=== PATIENT | male | born 1995 | race Caucasian/White ===

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

== ENCOUNTER 2017-01-21 21:18 | Emergency (ER) | payer OTHER ==
[2017-01-21] MEDS ORDERED: NS 0.9% 1000 ML* 1,000 ML IV ONE (23:42)
[2017-01-21] MEDS ORDERED: Ondansetron INJ* 2 MG/ML VIAL IV ONE (23:42)
--- NOTE | 2017-01-22 00:13 | ED ---
I, Shiva,Joann, scribed for Raj Knight MD on 01/21/17 at 2344 . Headache - HPI Summary HPI Summary: This 21 y/o male presents to ED for acute onset of migraine SUGGS since 1500 PM. Pt rates SUGGS as 8/10 and diffuse. Positive n/v. Negative photophobia. Pt appears sleepy at time of initial evaluation. Pt has not taken anything to control his SUGGS. PMHx includes known migraine and asthma. Pt reports that this SUGGS feels similar to his known migraine. FHx is positive for CAD, HTN, DM, and throat CA. Family members present at bedside express concern for possible dehydration. Plan of care involving IV fluid and anti-nausea medication is discussed with pt , and they are agreeable. - History Of Current Complaint Chief Complaint: EDHeadache Stated Complaint: VOMITING,HEADPAIN Time Seen by Provider: 01/21/17 23:03 Hx Obtained From: Patient, Medical Records Onset/Duration: Sudden Onset Timing: Constant Character: Dull Location of Headache: Diffuse Aggravating Factor: Nothing Allevating Factors: Nothing - Allergies/Home Medications Allergies/Adverse Reactions: Allergies Allergy/AdvReac Type Severity Reaction Status Date / Time Environmental Allergies Allergy Wheezing Uncoded 12/10/16 08:08 PMH/Surg Hx/FS Hx/Imm Hx Endocrine/Hematology History: Denies: Hx Anticoagulant Therapy, Hx Diabetes, Hx Thyroid Disease Cardiovascular History: Denies: Hx Congestive Heart Failure, Hx Deep Vein Thrombosis, Hx Hypertension , Hx Myocardial Infarction, Hx Pacemaker/ICD Respiratory History: Reports: Hx Asthma Denies: Hx Chronic Obstructive Pulmonary Disease (COPD), Hx Lung Cancer, Hx Pneumonia, Hx Pulmonary Embolism GI History: Reports: Hx Gastroesophageal Reflux Disease, Other GI Disorders - hx of abd pain now Denies: Hx Gall Bladder Disease, Hx Gastrointestinal Bleed, Hx Ulcer, Hx Urosepsis History: Denies: Hx Kidney Stones, Hx Renal Disease Neurological History: Reports: Hx Seizures - He states that he had this in the past--9 years old. No medications. Denies: Hx Dementia, Hx Migraine, Hx Transient Ischemic Attacks (TIA) Psychiatric History: Reports: Hx Depression Denies: Hx Anxiety, Hx Schizophrenia, Hx Bipolar Disorder - Surgical History Surgery Procedure, Year, and Place: Laparoscopic appendectomy 10/08/12 [facility] [place]x Anesthesia Reactions: No Infectious Disease History: Denies: Hx Clostridium Difficile, Hx Hepatitis, Hx Human Immunodeficiency Virus (HIV), Hx of Known/Suspected MRSA, Hx Shingles, Hx Tuberculosis, Hx Known/ Suspected VRE, Hx Known/Suspected VRSA, History Other Infectious Disease, Traveled Outside the [place] in Last 30 Days - Family History Known Family History: Positive: Cardiac Disease, Hypertension - mother has Hypertension, Diabetes, Other - father at age 30 of throat cancer - Social History Alcohol Use: Rare Hx Substance Use: Yes Substance Use Type: Reports: Marijuana Substance Use Comment - Amount & Last Used: "not recently" Hx Tobacco Use: No Smoking Status (MU): Never Smoked Tobacco Type: Cigars Have You Smoked in the Last Year: No Review of Systems Negative: Fever Positive: Vomiting, Nausea Positive: Headache - Migraine SUGGS All Other Systems Reviewed And Are Negative: Yes Physical Exam Triage Information Reviewed: Yes Vital Signs On Initial Exam: Initial Vitals Temp Pulse Resp BP Pulse Ox 97.7 F 110 20 127/75 100 01/21/17 21:21 01/21/17 21:21 01/21/17 21:21 01/21/17 21:21 01/21/17 21:21 Vital Signs Reviewed: Yes Appearance: Positive: Well-Appearing, No Pain Distress Skin: Positive: Warm Head/Face: Positive: Normal Head/Face Inspection Eyes: Positive: EOMI, JJ ENT: Positive: Hearing grossly normal Neck: Positive: Supple Respiratory/Lung Sounds: Positive: Breath Sounds Present Cardiovascular: Positive: RRR Abdomen Description: Positive: Nontender, Soft Musculoskeletal: Positive: Strength/ROM Intact Neurological: Positive: Sensory/Motor Intact, Alert, Oriented to Person Place, Time, Normal Gait Psychiatric: Positive: Normal Diagnostics - Vital Signs Vital Signs Temp Pulse Resp BP Pulse Ox 01/21/17 21:21 97.7 F 110 20 127/75 100 - Laboratory Lab Statement: Any lab studies that have been ordered have been reviewed, and results considered in the medical decision making process. Re-Evaluation - Re-Evaluation First Eval Re-Evaluation Time: 01:02 Change: Improved Headache Course/Dx - Diagnoses Provider Diagnoses: Migraine Discharge - Discharge Plan Condition: Improved Disposition: HOME Patient Education Materials: Migraine Headache (ED) Referrals: Bry Dorado MD [Primary Care Provider] - 2 Days Additional Instructions: Continue your present treatment for migraine headache as instructed. The documentation as recorded by the Shiva donato Soohyun accurately reflects the service I personally performed and the decisions made by me, Raj Knight MD.
[2017-01-22 01:15] VITALS: BP 113/79
== END 2017-01-22 01:15 | disposition home or self-care (01) ==
LOC: ED 21:18
DX: G43.909 Migraine, unspecified, not intractable, without status migrainosus (principal); G40.909 Epilepsy, unspecified, not intractable, without status epilepticus; F32.9 Major depressive disorder, single episode, unspecified
CPT/HCPCS: 96361; 96374; 99283; J2405

== ENCOUNTER 2018-05-28 11:49 | Emergency (ER) | payer OTHER ==
[2018-05-28 12:08] VITALS: BP 117/58
--- NOTE | 2018-05-28 12:25 | UC ---
Throat Pain/Nasal Matheus HPI - HPI Summary HPI Summary: Onset of left sided sore throat, pain with swallowing, cough and sneeze last night. No fever. - History of Current Complaint Chief Complaint: UCGeneralIllness Stated Complaint: SORE THROAT Time Seen by Provider: 05/28/18 12:15 Hx Obtained From: Patient Onset/Duration: Gradual Onset, Lasting Hours, Still Present Severity: Moderate Pain Intensity: 6 Pain Scale Used: 0-10 Numeric Cough: Nonproductive Associated Signs & Symptoms: Positive: Other - SNEEZING. Negative: Fever Related History: Seasonal Allergies - Allergies/Home Medications Allergies/Adverse Reactions: Allergies Allergy/AdvReac Type Severity Reaction Status Date / Time Environmental Allergies Allergy Wheezing Uncoded 05/28/18 12:11 PMH/Surg Hx/FS Hx/Imm Hx - Additional Past Medical History Additional PMH: ALLERGIES Other History Of: Negative For: HIV, Hepatitis B, Hepatitis C, Anticoagulant Therapy - Surgical History Surgical History: Yes Surgery Procedure, Year, and Place: Laparoscopic appendectomy 10/08/12 [facility] [place] - Family History Known Family History: Positive: Cardiac Disease, Hypertension - mother has Hypertension, Diabetes, Other - father at age 30 of throat cancer - Social History Alcohol Use: Rare Substance Use Type: Marijuana Substance Use Comment - Amount & Last Used: "not recently" Smoking Status (MU): Never Smoked Tobacco Type: Cigars Have You Smoked in the Last Year: No Household Exposure Type: Cigarettes - Immunization History Most Recent Influenza Vaccination: May 2015 Most Recent Tetanus Shot: UTD Vaccination Up to Date: Yes Review of Systems Constitutional: Negative ENT: Sore Throat, Ear Ache, Nasal Discharge Respiratory: Cough Cardiovascular: Negative Gastrointestinal: Negative All Other Systems Reviewed And Are Negative: Yes Physical Exam Triage Information Reviewed: Yes Appearance: Well-Appearing, No Pain Distress, Well-Nourished Vital Signs: Initial Vital Signs Temp 97.8 F 05/28/18 12:01 Pulse 93 05/28/18 12:01 Resp 15 05/28/18 12:01 BP 117/58 05/28/18 12:01 Pulse Ox 97 05/28/18 12:01 Vital Signs Reviewed: Yes Eyes: Positive: Conjunctiva Clear ENT: Positive: Hearing grossly normal, Pharynx normal, TMs normal, Uvula midline. Negative: Tonsillar swelling, Tonsillar exudate Neck: Positive: Supple, Nontender, No Lymphadenopathy Respiratory Exam: Normal Cardiovascular Exam: Normal Abdomen Description: Positive: Soft Musculoskeletal: Positive: No Edema Neurological: Positive: Alert Psychological: Positive: Age Appropriate Behavior Skin: Negative: rashes Throat Pain/Nasal Course/Dx - Differential Dx/Diagnosis Provider Diagnoses: ACUTE PHARYNGITIS Discharge - Sign-Out/Discharge Documenting (check all that apply): Patient Departure All imaging exams completed and their final reports reviewed: No Studies - Discharge Plan Condition: Stable Disposition: HOME Patient Education Materials: Pharyngitis (ED) Forms: *Work Release Referrals: Bry Dorado MD [Primary Care Provider] - If Needed Additional Instructions: YOUR SYMPTOMS ARE LIKELY VIRALLY MEDIATED AND SHOULD RESOLVE ON THEIR OWN WITH TIME. NO INDICATION FOR ANTIBIOTICS AT PRESENT. REST, HYDRATE, OTC MEDS NEEDED. SEEK FOLLOW-UP IF YOU ARE NOT IMPROVING OVER THE NEXT 1-2 WEEKS. CONTINUE YOUR ALLERGY MEDICINE. - Billing Disposition and Condition Condition: STABLE Disposition: Home
== END 2018-05-28 12:29 | disposition home or self-care (01) ==
LOC: UCEAST 11:49
DX: J02.9 Acute pharyngitis, unspecified (principal); R05 Cough
CPT/HCPCS: 99211; G0463

== ENCOUNTER 2018-06-16 11:29 | Emergency (ER) | payer OTHER ==
[2018-06-16 11:58] VITALS: BP 91/53
--- NOTE | 2018-06-16 12:31 | UC ---
Nausea/Vomiting/Diarrhea HPI - HPI Summary HPI Summary: 23-year-old male comes to clinic today with a chief complaint of nausea and vomiting. He's been sick for 3-4 days. Started with vomiting 2 days ago. His multiple episodes of vomiting the last 2 days. Vomited once today. His been able to drink some water but he hasn't been able eat anything. Eating makes the nausea and vomiting worse. Has had some diarrhea today there is no blood in it. He is getting some abdominal cramping but it's not persistent and he has no pain now. No fevers or chills. Is feel lightheaded when he stands up. No sore throat. He has had some rhinorrhea. A younger brother has had a similar illness with nausea and vomiting. - History of Current Complaint Chief Complaint: UCGI Stated Complaint: VOMITING Time Seen by Provider: 06/16/18 12:18 Pain Intensity: 7 - Allergies/Home Medications Allergies/Adverse Reactions: Allergies Allergy/AdvReac Type Severity Reaction Status Date / Time Environmental Allergies Allergy Wheezing Uncoded 06/16/18 11:58 Home Medications: Home Medications Acetaminophen [Tylophen] 1,000 mg PO ONCE PRN 06/16/18 [History Confirmed ] PMH/Surg Hx/FS Hx/Imm Hx Respiratory History: Asthma GI/ History: Gastroesophageal Reflux Neurological History: Migraine Other History Of: Negative For: HIV, Hepatitis B, Hepatitis C, Anticoagulant Therapy - Surgical History Surgical History: Yes Surgery Procedure, Year, and Place: Laparoscopic [place]ectomy 10[place]08[place] [facility] [place] - Family History Known Family History: Positive: Cardiac Disease, Hypertension - mother has Hypertension, Diabetes, Other - father at age 30 of throat cancer - Social History Alcohol Use: Rare Substance Use Type: Marijuana Substance Use Comment - Amount & Last Used: "not recently" Smoking Status (MU): Never Smoked Tobacco Type: Cigars Have You Smoked in the Last Year: No Household Exposure Type: Cigarettes - Immunization History Most Recent Influenza Vaccination: May 2015 Most Recent Tetanus Shot: UTD Vaccination Up to Date: Yes Review of Systems Constitutional: Fatigue Skin: Negative Eyes: Negative ENT: Nasal Discharge Respiratory: Negative Cardiovascular: Negative Gastrointestinal: Vomiting, Diarrhea Genitourinary: Negative Motor: Negative Neurovascular: Negative Musculoskeletal: Negative Neurological: Negative Psychological: Negative Is Patient Immunocompromised?: No All Other Systems Reviewed And Are Negative: Yes Physical Exam Triage Information Reviewed: Yes Appearance: No Pain Distress, Well-Nourished, Ill-Appearing - MILD Vital Signs: Initial Vital Signs Temp 99.5 F 06/16/18 11:53 Pulse 95 06/16/18 11:53 Resp 18 06/16/18 11:53 BP 91/53 06/16/18 11:53 Pulse Ox 97 06/16/18 11:53 Vital Signs Reviewed: Yes Eye Exam: Normal Eyes: Positive: Conjunctiva Clear ENT: Positive: Pharynx normal, Nasal congestion, TMs normal Neck exam: Normal Neck: Positive: Supple Respiratory: Positive: Lungs clear, Normal breath sounds, No respiratory distress Cardiovascular Exam: Normal Cardiovascular: Positive: RRR Abdomen Description: Positive: Nontender, Soft Bowel Sounds: Positive: Present Musculoskeletal Exam: Normal Musculoskeletal: Positive: Strength Intact, ROM Intact Neurological Exam: Normal Neurological: Positive: Alert, Muscle Tone Normal Psychological Exam: Normal Psychological: Positive: Age Appropriate Behavior Naus/Vom/Diarrhea Course/Dx - Course Course Of Treatment: No focal persistent abdominal pain no fevers. At this time we'll treat with Zofran ODT and then have him follow-up his primary care doctor as needed return here if worse. We discussed that if he gets any fevers or any focal area of pain in his abdomen than the emergency department is the best place for reevaluation and treatment. - Differential Dx/Diagnosis Provider Diagnoses: DEHYDRATION. NAUSEA, VOMITING, DIARRHEA Discharge - Sign-Out/Discharge Documenting (check all that apply): Patient Departure All imaging exams completed and their final reports reviewed: No Studies - Discharge Plan Condition: Stable Disposition: HOME Prescriptions: Ondansetron ODT TAB* [Zofran 4 MG Odt TAB*] 4 mg PO Q6H PRN #15 tab.odt PRN Reason: Nausea Patient Education Materials: Dehydration (ED), Acute Nausea and Vomiting (ED), Acute Diarrhea (ED) Referrals: Bry Dorado MD [Primary Care Provider] - Additional Instructions: FOLLOW UP WITH YOUR DOCTOR IF NOT COMPLETELY IMPROVED. GET RECHECKED FOR ANY WORSENING OF YOUR CONDITION OR QUESTIONS OR CONCERNS. - Billing Disposition and Condition Condition: STABLE Disposition: Home
[2018-06-16] MEDS ORDERED: Ondansetron ODT TAB* 4 MG PO ONE (12:35)
== END 2018-06-16 13:05 | disposition home or self-care (01) ==
LOC: UCEAST 11:29
DX: E86.0 Dehydration (principal); R11.2 Nausea with vomiting, unspecified; R19.7 Diarrhea, unspecified
CPT/HCPCS: 99212; A9270-GY; G0463

== ENCOUNTER 2018-08-14 10:17 | Emergency (ER) | payer OTHER ==
[2018-08-14 10:30] VITALS: BP 112/69
--- NOTE | 2018-08-14 11:03 | UC ---
Hand/Wrist HPI - HPI Summary HPI Summary: 23 yo male presents with RIGHT hand injury. He tells me that 2 days ago he was moving furniture and a piece of furniture fell onto his right hand. Has had pain , bruising, swelling, and decreased ROM since. He has been icing the area and taking ibuprofen for discomfort with little relief. - History Of Current Complaint Chief Complaint: UCUpperExtremity Stated Complaint: R HAND INJURY Time Seen by Provider: 08/14/18 10:30 Hx Obtained From: Patient Onset/Duration: Sudden Onset Severity Initially: Moderate Severity Currently: Severe Pain Intensity: 9 Pain Scale Used: 0-10 Numeric - Allergies/Home Medications Allergies/Adverse Reactions: Allergies Allergy/AdvReac Type Severity Reaction Status Date / Time Environmental Allergies Allergy Wheezing Uncoded 08/14/18 10:30 PMH/Surg Hx/FS Hx/Imm Hx Respiratory History: Asthma GI/ History: Gastroesophageal Reflux Other History Of: Negative For: HIV, Hepatitis B, Hepatitis C, Anticoagulant Therapy - Surgical History Surgical History: Yes Surgery Procedure, Year, and Place: Laparoscopic appendectomy 10/08/12 [facility] – [place] - Family History Known Family History: Positive: Cardiac Disease, Hypertension - mother has Hypertension, Diabetes, Other - father at age 30 of throat cancer - Social History Occupation: Employed Full-time Lives: With Family Alcohol Use: Rare Substance Use Type: Marijuana Substance Use Comment - Amount & Last Used: "not recently" Smoking Status (MU): Never Smoked Tobacco Type: Cigars Have You Smoked in the Last Year: No Household Exposure Type: Cigarettes - Immunization History Most Recent Influenza Vaccination: May 2015 Most Recent Tetanus Shot: UTD Vaccination Up to Date: Yes Review of Systems All Other Systems Reviewed And Are Negative: Yes Constitutional: Positive: Negative Skin: Positive: Bruising - Right hand Respiratory: Positive: Negative Cardiovascular: Positive: Negative Neurovascular: Positive: Negative Musculoskeletal: Positive: Other: - Right hand pain Neurological: Positive: Negative Psychological: Positive: Negative Physical Exam - Summary Physical Exam Summary: GENERAL: NAD. WDWN. No pain distress. SKIN: No rashes, sores, lesions, or open wounds. CHEST: No accessory muscle use. Breathing comfortably and in no distress. CV: Pulses intact radial and ulnar. Cap refill <2seconds MSK: RIGHT HAND: Moderate edema about hand. TTP at 4th and 5th MCP with decreased ROM due to pain. Mild TTP about ulnar aspect of wrist. FROM, but painful. Able to make a fist. Strength decreased due to pain and swelling. NEURO: Alert. Sensations intact hand and all fingers. PSYCH: Age appropriate behavior. Triage Information Reviewed: Yes Vital Signs: Initial Vital Signs Temp 98 F 08/14/18 10:26 Pulse 94 08/14/18 10:26 Resp 16 08/14/18 10:26 BP 112/69 08/14/18 10:26 Pulse Ox 99 08/14/18 10:26 Vital Signs Reviewed: Yes Procedures - Splinting Right Upper Extremity Hand-Made Type: orthoglass Splint: ulnar Pre-Proc Neuro Vasc Exam: normal Post-Proc Neuro Vasc Exam: normal Hand/Wrist Course/Dx - Course Course Of Treatment: XR: IMPRESSION: #. Suggestion of displaced intra- articular fracture at the base of the fifth metacarpal. Correlate with clinical assessment and consider CT for further evaluation. CT: IMPRESSION: Tiny fractures at the base of the fourth and fifth metacarpals in its radial. aspect. Fracture of the lateral aspect of the hamate. iSTOP: Reference #: [id number]. Discussed results above. Pt placed in an ulnar-gutter orthoglass splint and advised to f/u with Orthopedics as soon as possible. - Differential Dx/Diagnosis Provider Diagnosis: Right hand fracture Discharge - Sign-Out/Discharge Documenting (check all that apply): Patient Departure All imaging exams completed and their final reports reviewed: Yes - Discharge Plan Condition: Stable Disposition: HOME Prescriptions: HYDROcodone/ACETAMIN 5-325 MG* [Gila 5-325 TAB*] 1 tab PO BID PRN #6 tab MDD 2 PRN Reason: Pain Patient Education Materials: Hand Fracture (ED) Referrals: Bry Dorado MD [Primary Care Provider] - Rafal Sánchez MD [Medical Doctor] - As Soon As Possible Additional Instructions: If you develop a fever, shortness of breath, chest pain, new or worsening symptoms - please call your PCP or go to the ED. 1) Keep your splint clean, dry, and intact until your follow up with Orthopedics 2) Please call Orthopedics at the number below to schedule a follow up appointment as soon as possible - Billing Disposition and Condition Condition: STABLE Disposition: Home
== END 2018-08-14 12:25 | disposition home or self-care (01) ==
LOC: UCEAST 10:17
DX: S62.344A Nondisplaced fracture of base of fourth metacarpal bone, right hand, initial encounter for closed fracture (principal); S62.346A Nondisplaced fracture of base of fifth metacarpal bone, right hand, initial encounter for closed fracture; W20.8XXA Other cause of strike by thrown, projected or falling object, initial encounter; Y92.9 Unspecified place or not applicable
CPT/HCPCS: 99212; G0463

== ENCOUNTER 2018-09-30 11:37 | Emergency (ER) | payer OTHER ==
--- OUTSIDE RECORDS SUMMARY | 2018-09-30 11:42 | XMS REPORT | Continuity of Care Document ---
:1995 External Reference #:[id number] Author Name Solange Armando Care Team Providers Name Role Phone Bry Dorado MD Primary Care Physician Unavailable Payers Type Date Identification Numbers Payment Provider Subscriber Policy Number: [id number] Anthony Presley PayID: [id number] [address] [place] [address] Advance Directives Description No Information Available Problems Description No Information Family History Date Family Member(s) Problem(s) Comments Mother Diabetes Mother Hypertension Mother Rheumatoid Arthritis Social History Type Date Description Comments Sex Unknown Lives With Mother ETOH Use Denies alcohol use Tobacco Use Start: Unknown Patient has never smoked Smoking Status Reviewed: 09/03/18 Patient has never smoked Allergies, Adverse Reactions, Alerts Description No Known Drug Allergies Medications Medication Date Status Form Strength Qnty SIG Indications Ordering Provider Tasha 08/20/ Active Tablets 5-325mg 15tabs one tab by Thalia North mouth every Mason, M.D. 4-6 hours as needed pain Ventolin HFA / Active Aerosol 108(90Base 2 puffs by Unknown 0000 ) mcg/Act mouth four times a day as needed Loratadine / Active Capsules 10mg once a day Unknown 0000 for allergies as needed Immunizations Description No Information Available Vital Signs Date Vital Result Comment 09/03/2018 8:16am Height 71 inches 5'11" Weight 135.00 lb Heart Rate 74 /min BP Systolic 124 mmHg BP Diastolic 68 mmHg Body Temperature 98.2 F Pain Level 8 BMI (Body Mass Index) 18.8 kg/m2 08/20/2018 9:38am Height 71 inches 5'11" Weight 135.00 lb Heart Rate 88 /min BP Systolic Sitting 112 mmHg BP Diastolic Sitting 84 mmHg Pain Level 10 BMI (Body Mass Index) 18.8 kg/m2 Results Description No Information Available Procedures Description No Information Available Encounters Type Date Location Provider Dx Diagnosis Office Visit 08/20/2018 [facility] Thalia Mason, S62.344A Nond[facility] fx of 10:[facility] base of fourth MC bone, right hand, init S62.346A Nondisp fx of base of fifth MC bone, right hand, init Plan of Treatment Future Appointment(s):09/24/2018 8:15 am - Thalia Mason M.D. at [facility]
[2018-09-30 11:46] VITALS: BP 106/53
--- NOTE | 2018-09-30 12:19 | UC ---
Complaint Male HPI - HPI Summary HPI Summary: 23 yo male presents with burning with urination for the last 2-3 days and lower abdominal cramping. He tells me that he was in a relationship with his girlfriend for many years and she recently cheated on him. He has been sexually active with his girlfriend since that time and was unprotected. He is concerned about having a UTI or STD today. He has not noticed any blood in his urine or any discharge from his penis. No lesions. Unsure if girlfriend had any STDs. Denies fever, chills, n/v, diarrhea. - History of Current Complaint Chief Complaint: UCGU Stated Complaint: URINARY ISSUE Time Seen by Provider: 09/30/18 11:50 Hx Obtained From: Patient Onset/Duration: Sudden Onset Timing: Constant Severity Initially: Mild Severity Currently: Moderate Pain Intensity: 5 Pain Scale Used: 0-10 Numeric - Allergies/Home Medications Allergies/Adverse Reactions: Allergies Allergy/AdvReac Type Severity Reaction Status Date / Time Environmental Allergies Allergy Wheezing Uncoded 09/30/18 11:46 PMH/Surg Hx/FS Hx/Imm Hx - Additional Past Medical History Additional PMH: Allergies Respiratory History: Asthma GI/ History: Gastroesophageal Reflux Other History Of: Negative For: HIV, Hepatitis B, Hepatitis C, Anticoagulant Therapy - Surgical History Surgical History: Yes Surgery Procedure, Year, and Place: Laparoscopic appendectomy 10/08/12 [facility] – [place] - Family History Known Family History: Positive: Cardiac Disease, Hypertension - mother has Hypertension, Diabetes, Other - father at age 30 of throat cancer - Social History Lives: With Family Alcohol Use: Rare Substance Use Type: Marijuana Substance Use Comment - Amount & Last Used: "not recently" Smoking Status (MU): Never Smoked Tobacco Type: Cigars Have You Smoked in the Last Year: No Household Exposure Type: Cigars - Immunization History Most Recent Influenza Vaccination: May 2015 Most Recent Tetanus Shot: UTD Vaccination Up to Date: Yes Review of Systems All Other Systems Reviewed And Are Negative: Yes Constitutional: Positive: Negative Skin: Positive: Negative Respiratory: Positive: Negative Cardiovascular: Positive: Negative Gastrointestinal: Positive: Negative Genitourinary: Positive: Dysuria Neurological: Positive: Negative Psychological: Positive: Negative Physical Exam - Summary Physical Exam Summary: GENERAL: NAD. WDWN. No pain distress. SKIN: No rashes, sores, lesions, or open wounds. NECK: Supple. Nontender. No lymphadenopathy. CHEST: CTAB. No r/r/w. No accessory muscle use. Breathing comfortably and in no distress. CV: RRR. Without m/r/g. Pulses intact. Cap refill <2seconds ABDOMEN: Soft. NTTP. No distention or guarding. No CVA tenderness. Bowel sounds present NEURO: Alert. PSYCH: Age appropriate behavior. Triage Information Reviewed: Yes Vital Signs: Initial Vital Signs Temp 99.1 F 09/30/18 11:43 Pulse 109 09/30/18 11:43 Resp 18 09/30/18 11:43 BP 106/53 09/30/18 11:43 Pulse Ox 98 09/30/18 11:43 Laboratory Tests 09/30/18 12:22 POC Urine Color Yellow POC Urine Clarity Clear POC Urine pH 6.0 POC Ur Specif Nallen 1.020 POC Urine Protein Negative POC Ur Glucose (UA) Negative POC Urine Ketones Negative POC Urine Blood Negative POC Urine Nitrite Negative POC Urine Bilirubin Negative POC Urine Urobilinogen 0.2 POC U Leukocyte Esteras Negative Vital Signs Reviewed: Yes Complaint Male Course/Dx - Course Course Of Treatment: He declined genital exam today as he has no visible symptoms. UA negative. He was treated for GC/C today and cultures and labwork were obtained for STD testing. - Differential Dx/Diagnosis Provider Diagnosis: Dysuria, At risk for sexually transmitted disease due to unprotected sex Discharge - Sign-Out/Discharge Documenting (check all that apply): Patient Departure All imaging exams completed and their final reports reviewed: No Studies - Discharge Plan Condition: Stable Disposition: HOME Patient Education Materials: Sexually Transmitted Diseases (ED) Forms: *Work Release Referrals: Bry Dorado MD [Primary Care Provider] - Additional Instructions: If you develop a fever, shortness of breath, chest pain, new or worsening symptoms - please call your PCP or go to the ED. Your urine today did not show any sign of infection, therefore you were treated for Gonorrhea and Chlamydia today. We have sent out lab work for further testing and should have results in 2-3 days - please call to ask about your results. - Billing Disposition and Condition Condition: STABLE Disposition: Home
[2018-09-30] MEDS ORDERED: Azithromycin TAB* 250 MG PO ONE (12:34)
[2018-09-30] MEDS ORDERED: cefTRIAXone VIAL(*) 250 MG VIAL IM ONE (12:34)
[2018-09-30] MEDS ORDERED: Lidocaine 1% MPF* 2 ML VIAL INJ ONE (12:35)
[2018-09-30] MEDS ORDERED: Lidocaine 1%* 5 ML VIAL ONE (12:40)
[2018-09-30 15:57] LABS: ABS Basophils 0.1 10^3/ul (0-0.2); ABS Eosinophils 0.7 10^3/ul (0-0.6); ABS Lymphocytes 1.8 10^3/ul (1.0-4.8); ABS Monocytes 0.2 10^3/ul (0-0.8); ABS Neutrophils 1.9 10^3/ul (1.5-7.7); ABS Nucleated RBC 0 10^3/ul; Eosinophil % 14.7 %; Hematocrit 42 % (42-52); Hemoglobin 14.3 g/dl (14.0-18.0); Lymphocyte % 39.1 %; Mean Corpuscular HGB Conc 34 g/dl (31-36); Mean Corpuscular Hemoglobin 33 pg (27-31); Mean Corpuscular Volume 95 fL (80-94); Mean Platelet Volume 9.1 fL (7.4-10.4); Nucleated Red Blood Cells % 0.1; Platelet Count 211 10^3/ul (150-450); Red Blood Count 4.39 10^6/ul (4.00-5.40); Red Cell Distribution Width 12 % (10.5-15); White Blood Count 4.7 10^3/ul (3.5-10.8)
[2018-09-30 16:12] LABS: Albumin 4.7 g/dL (3.2-5.2); Calcium 9.4 mg/dL (8.6-10.3); Total Bilirubin 1.5 mg/dL (0.2-1.0)
[2018-09-30 16:18] LABS: BUN/Creatinine Ratio 12.2 (8-20); EGFR African American 161.6 (>60); EGFR Non-African American 133.5 (>60); Globulin 2.3 g/dL (2-4)
[2018-10-01 13:02] LABS: Neisseria gonorrhoeae (GC) RNA Negative (Negative)
[2018-10-01 13:10] LABS: Hepatitis B Surface Antigen Nonreactive (Nonreactive)
[2018-10-01 13:32] LABS: Hepatitis C Antibody Nonreactive (Nonreactive)
[2018-10-02 14:46] LABS: Herpes Simplex Virus I IgG AB Negative (Negative); Herpes Simplex Virus II IgG AB Positive (Negative)
--- NOTE | 2018-10-02 15:49 | UC ---
- Progress Note Progress Note: Pt positive for HSV 2 - genital herpes. He was seen for lower abdominal pain and dysuria and STD testing - stated he had no lesions and declined genital exam at the time. No treatment for HSV 2 unless he has an outbreak, but can let him know he is a carrier and may have an outbreak. Shoulder practice safe sex ( condoms) and avoid intercourse if having active lesions. Course/Dx - Diagnoses Provider Diagnoses: Dysuria, At risk for sexually transmitted disease due to unprotected sex Discharge - Sign-Out/Discharge Documenting (check all that apply): Post-Discharge Follow Up All imaging exams completed and their final reports reviewed: No Studies - Discharge Plan Condition: Stable Disposition: HOME Patient Education Materials: Sexually Transmitted Diseases (ED) Forms: *Work Release Referrals: Bry Dorado MD [Primary Care Provider] - Additional Instructions: If you develop a fever, shortness of breath, chest pain, new or worsening symptoms - please call your PCP or go to the ED. Your urine today did not show any sign of infection, therefore you were treated for Gonorrhea and Chlamydia today. We have sent out lab work for further testing and should have results in 2-3 days - please call to ask about your results. - Billing Disposition and Condition Condition: STABLE Disposition: Home - Attestation Statements Provider Attestation: I was available for consult. This patient was seen by the RENÉE. The patient was not presented to, seen by, or examined by me. -Semaj
== END 2018-09-30 13:00 | disposition home or self-care (01) ==
LOC: UCEAST 11:37
DX: R30.0 Dysuria (principal); A60.00 Herpesviral infection of urogenital system, unspecified
CPT/HCPCS: 36415; 80053; 80074; 81003; 85025; 86592; 86695; 86696; 86703; 87491; 87591; 96372; 99212; A9270-GY; G0463; J0696

== ENCOUNTER 2019-01-04 09:12 | Emergency (ER) | payer OTHER ==
[2019-01-04 10:45] LABS: ABS Basophils 0.1 10^3/ul (0-0.2); ABS Eosinophils 0.6 10^3/ul (0-0.6); ABS Monocytes 0.4 10^3/ul (0-0.8); ABS Neutrophils 2.4 10^3/ul (1.5-7.7); ALT 14 U/L (7-52); AST 19 U/L (13-39); Albumin 4.6 g/dL (3.2-5.2); Albumin/Globulin Ratio 1.8 (1-3); Alkaline Phosphatase 69 U/L (34-104); Anion Gap 5 mmol/L (2-11); BUN/Creatinine Ratio 15.1 (8-20); Blood Urea Nitrogen 13 mg/dL (6-24); C Reactive Protein < 1.00 mg/L (<8.01); CO2 Carbon Dioxide 27 mmol/L (22-32); Calcium 9.6 mg/dL (8.6-10.3); Chloride 105 mmol/L (101-111); EGFR African American 135.8 (>60); EGFR Non-African American 112.3 (>60); Eosinophil % 11.2 %; Globulin 2.6 g/dL (2-4); Glucose 86 mg/dL (70-100); Hematocrit 42 % (42-52); Hemoglobin 13.8 g/dL (14.0-18.0); Lymphocyte % 37.2 %; Mean Corpuscular HGB Conc 33 g/dL (31-36); Mean Corpuscular Hemoglobin 32 pg (27-31); Mean Corpuscular Volume 96 fL (80-94); Platelet Count 181 10^3/uL (150-450); Red Blood Count 4.31 10^6 /uL (4.18-5.48); Red Cell Distribution Width 12 % (10.5-15); Sodium 137 mmol/L (135-145); Total Protein 7.2 g/dL (6.4-8.9); White Blood Count 5.5 10^3/uL (3.5-10.8)
[2019-01-04 10:47] LABS: Urine Appearance Clear; Urine Bilirubin Negative (Negative); Urine Blood Negative (Negative); Urine Color Yellow; Urine Glucose Negative (Negative); Urine Ketones Negative (Negative); Urine Nitrite Negative (Negative); Urine Protein Negative (Negative); Urine Specific Gravity 1.013 (1.010-1.030); Urine Urobilinogen Negative (Negative)
--- NOTE | 2019-01-04 10:47 | ED ---
Abdominal Pain/Male - HPI Summary HPI Summary: Patient is a 23-year-old male who presents to the ED with left-sided chest pain radiating to the right side intermittently for the past week. He is also endorsing urinating frequently, urgency without burning. Endorses right-sided flank pain intermittently. He denies any fevers, however his endorsing intermittent sweats and chills. She endorses bilateral neck stiffness, which has improved over the past day. Denies any photophobia. Denies any known sick contacts or travel. He denies any shortness of breath. No nausea, vomiting, diarrhea or constipation. - History of Current Complaint Chief Complaint: EDAbdPain Stated Complaint: PAIN IN CHEST/ABD AND BACK PER PT Time Seen by Provider: 01/04/19 10:08 Hx Obtained From: Patient Onset/Duration: Sudden Onset Timing: Constant Severity Initially: Moderate Severity Currently: Moderate Pain Intensity: 6 Pain Scale Used: 0-10 Numeric Location: Other - chest pain, abdominal pain Radiates: No Character: Cramping Aggravating Factor(s): Nothing Alleviating Factor(s): Nothing Associated Signs And Symptoms: Positive: Negative - Allergies/Home Medications Allergies/Adverse Reactions: Allergies Allergy/AdvReac Type Severity Reaction Status Date / Time Environmental Allergies Allergy Wheezing Uncoded 01/04/19 09:20 PMH/Surg Hx/FS Hx/Imm Hx Previously Healthy: Yes Endocrine/Hematology History: Denies: Hx Anticoagulant Therapy, Hx Diabetes, Hx Thyroid Disease Cardiovascular History: Denies: Hx Congestive Heart Failure, Hx Deep Vein Thrombosis, Hx Hypertension , Hx Myocardial Infarction, Hx Pacemaker/ICD Respiratory History: Reports: Hx Asthma - NO MEDS / Denies: Hx Chronic Obstructive Pulmonary Disease (COPD), Hx Lung Cancer, Hx Pneumonia, Hx Pulmonary Embolism GI History: Reports: Hx Gastroesophageal Reflux Disease, Other GI Disorders - hx of abd pain now Denies: Hx Gall Bladder Disease, Hx Gastrointestinal Bleed, Hx Ulcer, Hx Urosepsis History: Denies: Hx Kidney Stones, Hx Renal Disease Neurological History: Reports: Hx Seizures - He states that he had this in the past--9 years old. No medications. Denies: Hx Dementia, Hx Migraine, Hx Transient Ischemic Attacks (TIA) Psychiatric History: Reports: Hx Depression Denies: Hx Anxiety, Hx Schizophrenia, Hx Bipolar Disorder - Surgical History Surgery Procedure, Year, and Place: Laparoscopic appendectomy 10[place]08/12 [facility] [place]x Anesthesia Reactions: No - Immunization History Hx Pertussis Vaccination: No Immunizations Up to Date: Yes Infectious Disease History: No Infectious Disease History: Denies: Hx Clostridium Difficile, Hx Hepatitis, Hx Human Immunodeficiency Virus (HIV), Hx of Known/Suspected MRSA, Hx Shingles, Hx Tuberculosis, Hx Known/ Suspected VRE, Hx Known/Suspected VRSA, History Other Infectious Disease, Traveled Outside the [place] in Last 30 Days - Family History Known Family History: Positive: Cardiac Disease, Hypertension - mother has Hypertension, Diabetes, Other - father at age 30 of throat cancer - Social History Occupation: Unemployed Lives: With Family Alcohol Use: Rare Hx Substance Use: Yes Substance Use Type: Reports: Marijuana Substance Use Comment - Amount & Last Used: "not recently" Hx Tobacco Use: No Smoking Status (MU): Never Smoked Tobacco Type: Cigars Have You Smoked in the Last Year: No Review of Systems Constitutional: Negative Negative: Fever, Chills, Fatigue, Skin Diaphoresis Positive: Chest Pain. Negative: Palpitations Negative: Shortness Of Breath, Cough Positive: Abdominal Pain. Negative: Vomiting, Diarrhea, Nausea Positive: frequency, urgency. Negative: dysuria, discharge, hematuria, incontinence Negative: Arthralgia, Myalgia Skin: Negative All Other Systems Reviewed And Are Negative: Yes Physical Exam Triage Information Reviewed: Yes Vital Signs On Initial Exam: Initial Vitals Temp Pulse Resp BP Pulse Ox 98.0 F 109 16 121/71 98 01/04/19 09:16 01/04/19 09:16 01/04/19 09:16 01/04/19 09:16 01/04/19 09:16 Vital Signs Reviewed: Yes Appearance: Positive: Well-Appearing, Well-Nourished Skin: Positive: Warm, Skin Color Reflects Adequate Perfusion Head/Face: Positive: Normal Head/Face Inspection Eyes: Positive: EOMI, JJ, Conjunctiva Clear Neck: Positive: Supple, No Lymphadenopathy Respiratory/Lung Sounds: Positive: Clear to Auscultation, Breath Sounds Present Cardiovascular: Positive: RRR, Pulses are Symmetrical in both Upper and Lower Extremities Musculoskeletal: Positive: Strength/ROM Intact Neurological: Positive: Speech Normal Psychiatric: Positive: Affect/Mood Appropriate AVPU Assessment: Alert Diagnostics - Vital Signs Vital Signs Temp Pulse Resp BP Pulse Ox 01/04/19 09:16 98.0 F 109 16 121/71 98 - Laboratory Lab Results: Lab Results 01/04/19 01/04/19 Range/Units 10:22 10:22 WBC 5.5 (3.5-10.8) 10^3/uL RBC 4.31 (4.18-5.48) 10^6 /uL Hgb 13.8 L (14.0-18.0) g/dL Hct 42 (42-52) % MCV 96 H (80-94) fL MCH 32 H (27-31) pg MCHC 33 (31-36) g/dL RDW 12 (10.5-15) % Plt Count 181 (150-450) 10^3/uL MPV 9.0 (7.4-10.4) fL Neut % (Auto) 43.3 % Lymph % (Auto) 37.2 % Miner % (Auto) 7.1 % Eos % (Auto) 11.2 % Baso % (Auto) 1.2 % Absolute Neuts (auto) 2.4 (1.5-7.7) 10^3/ul Absolute Lymphs (auto) 2.0 (1.0-4.8) 10^3/ul Absolute Monos (auto) 0.4 (0-0.8) 10^3/ul Absolute Eos (auto) 0.6 (0-0.6) 10^3/ul Absolute Basos (auto) 0.1 (0-0.2) 10^3/ul Absolute Nucleated RBC 0.0 10^3/ul Nucleated RBC % 0.0 Sodium 137 (135-145) mmol/L Potassium 4.0 (3.5-5.0) mmol/L Chloride 105 (101-111) mmol/L Carbon Dioxide 27 (22-32) mmol/L Anion Gap 5 (2-11) mmol/L BUN 13 (6-24) mg/dL Creatinine 0.86 (0.67-1.17) mg/dL Est GFR ( Amer) 135.8 (>60) Est GFR (Non-Af Amer) 112.3 (>60) BUN/Creatinine Ratio 15.1 (8-20) Glucose 86 (70-100) mg/dL Calcium 9.6 (8.6-10.3) mg/dL Total Bilirubin 2.60 H (0.2-1.0) mg/dL AST 19 (13-39) U/L ALT 14 (7-52) U/L Alkaline Phosphatase 69 (34-104) U/L Troponin I Pending C-Reactive Protein < 1.00 (<8.01) mg/L Total Protein 7.2 (6.4-8.9) g/dL Albumin 4.6 (3.2-5.2) g/dL Globulin 2.6 (2-4) g/dL Albumin/Globulin Ratio 1.8 (1-3) Result Diagrams: 01/04/19 10:22 01/04/19 10:22 Lab Statement: Any lab studies that have been ordered have been reviewed, and results considered in the medical decision making process. Abdominal Pain Male Course/Dx - Course Course Of Treatment: During this was a treatment, the patient is evaluated for a variety of complaints. He is endorsing left-sided chest pain which radiates to the right side. Troponin 0.00. Chest x-ray is negative for any acute findings. He is also endorsing abdominal pain which is diffuse and has been mild constant over the past week. Denies any nausea, vomiting, diarrhea, constipation. He is endorsing urinary frequency and urgency. UA obtained and is negative. History of appendectomy. No pain on palpation to the right upper quadrant negative Leong sign. No pain on palpation throughout the abdomen, he states he is not having any symptoms at this time. He denies any fevers, however is endorsing sweats and chills, but again not this time. Patient appears well on physical exam, nontoxic in appearing and vital signs stable. He has no cardiac history. He denies any shortness of breath. He is endorsing bilateral neck pain, without stiffness. He states a few days ago he felt like his neck was stiff. He does have a left-sided dental infection and has been taking clindamycin for this. Discussed treatment with patient. He will continue on his clindamycin. No other acute findings for his symptoms today. He will follow-up with his PCP in a few days. He understands to return for any worsening or changing symptoms. - Diagnoses Provider Diagnoses: Chest wall pain, Abdominal pain, Back pain Discharge - Sign-Out/Discharge Documenting (check all that apply): Patient Departure Patient Received Moderate/Deep Sedation with Procedure: No - Discharge Plan Condition: Stable Disposition: HOME Prescriptions: Naproxen [Naproxen 500 mg tab] 500 mg PO BID PRN #20 tablet.dr REAL Reason: Pain Forms: *Work Release Referrals: Bry Doardo MD [Primary Care Provider] - Additional Instructions: NO evidence of pneumonia, urinary tract infection or other abnormalities Please see your PCP for close follow up next week if symptoms persist - Billing Disposition and Condition Condition: STABLE Disposition: Home
[2019-01-04 11:39] VITALS: BP 121/50
[2019-01-07 12:58] LABS: Neisseria gonorrhoeae (GC) RNA Negative (Negative)
== END 2019-01-04 11:39 | disposition home or self-care (01) ==
LOC: ED 09:12
DX: R07.89 Other chest pain (principal); R10.84 Generalized abdominal pain; M54.9 Dorsalgia, unspecified; M54.2 Cervicalgia; R35.0 Frequency of micturition; K04.7 Periapical abscess without sinus; Z90.89 Acquired absence of other organs; Z82.49 Family history of ischemic heart disease and other diseases of the circulatory system
CPT/HCPCS: 36415; 71046; 80053; 81003; 84484; 85025; 86140; 87491; 87591; 99282

== ENCOUNTER 2019-03-27 09:07 | Emergency (ER) | payer OTHER ==
[2019-03-27 09:20] VITALS: BP 124/76
[2019-03-27] MEDS ORDERED: Albuterol 2.5 MG/3 ML NEB.SOL* (0.083%) INH ONE (09:58)
--- NOTE | 2019-03-27 10:20 | UC ---
Respiratory Complaint HPI - HPI Summary HPI Summary: 24-year-old male comes in with a chief complaint of upper respiratory tract infection symptoms and asthma exacerbation for one week. Patient's been taking his albuterol which does help some with the symptoms. Has been wheezing discussed some rhinorrhea. No recent fevers. - History of Current Complaint Chief Complaint: UCRespiratory Stated Complaint: WHEEZING Time Seen by Provider: 03/27/19 09:57 Pain Intensity: 0 - Allergies/Home Medications Allergies/Adverse Reactions: Allergies Allergy/AdvReac Type Severity Reaction Status Date / Time Environmental Allergies Allergy Wheezing Uncoded 03/27/19 09:20 PMH/Surg Hx/FS Hx/Imm Hx Previously Healthy: Yes Respiratory History: Asthma Other History Of: Negative For: HIV, Hepatitis B, Hepatitis C, Anticoagulant Therapy - Surgical History Surgical History: Yes Surgery Procedure, Year, and Place: Laparoscopic appendectomy 10/08/12 [facility] [place] - Family History Known Family History: Positive: Cardiac Disease, Hypertension - mother has Hypertension, Diabetes, Other - father at age 30 of throat cancer - Social History Alcohol Use: Occasionally Substance Use Type: Marijuana Substance Use Comment - Amount & Last Used: "not recently" Smoking Status (MU): Never Smoked Tobacco Type: Cigars Have You Smoked in the Last Year: No Household Exposure Type: Cigars - Immunization History Most Recent Influenza Vaccination: May 2015 Most Recent Tetanus Shot: UTD Vaccination Up to Date: Yes Review of Systems All Other Systems Reviewed And Are Negative: Yes Constitutional: Positive: Negative Skin: Positive: Negative Eyes: Positive: Negative ENT: Positive: Nasal Discharge, Sinus Congestion Respiratory: Positive: Other - SEE HPI Cardiovascular: Positive: Negative Gastrointestinal: Positive: Negative Motor: Positive: Negative Neurovascular: Positive: Negative Musculoskeletal: Positive: Negative Neurological: Positive: Negative Psychological: Positive: Negative Is Patient Immunocompromised?: No Physical Exam Triage Information Reviewed: Yes Appearance: No Pain Distress, Well-Nourished, Ill-Appearing - MILD Vital Signs: Initial Vital Signs Temp 98.4 F 03/27/19 09:16 Pulse 108 03/27/19 09:16 Resp 18 03/27/19 09:16 BP 124/76 03/27/19 09:16 Pulse Ox 95 03/27/19 09:16 Vital Signs Reviewed: Yes Eye Exam: Normal Eyes: Positive: Conjunctiva Clear ENT: Positive: Pharyngeal erythema, Nasal congestion, Nasal drainage, TMs normal Neck: Positive: Supple Respiratory: Positive: No respiratory distress, Wheezing Cardiovascular: Positive: RRR Musculoskeletal: Positive: Strength Intact, ROM Intact Neurological: Positive: Alert, Muscle Tone Normal Psychological: Positive: Age Appropriate Behavior Skin Exam: Normal Respiratory Course/Dx - Course Course Of Treatment: DISCUSSED VIRAL VERSES BACTERIAL INFECTION AND THE ROLE OF ANTIBIOTICS. THE PATIENT PREFERS TO BE ON ANTIBIOTICS AT THIS TIME. - Differential Dx/Diagnosis Provider Diagnosis: Bronchitis, Asthma Discharge - Sign-Out/Discharge Documenting (check all that apply): Patient Departure All imaging exams completed and their final reports reviewed: No Studies - Discharge Plan Condition: Stable Disposition: HOME Prescriptions: Azithromyxin MOMO (NF) [Z-Momo (Zithromax) 250 mg tabs #6] 2 tab PO .TODAY, THEN 1 DAILY #6 tab predniSONE TAB* [Deltasone 20 MG TAB*] 40 mg PO DAILY #10 tab Patient Education Materials: Acute Bronchitis (ED), Asthma (ED) Referrals: Bry Dorado MD [Primary Care Provider] - Additional Instructions: FOLLOW UP WITH YOUR DOCTOR IF NOT COMPLETELY IMPROVED. GET RECHECKED SOONER IF YOUR CONDITION WORSENS OR ANY QUESTIONS OR CONCERNS. - Billing Disposition and Condition Condition: STABLE Disposition: Home
== END 2019-03-27 10:26 | disposition home or self-care (01) ==
LOC: UCEAST 09:07
DX: J45.909 Unspecified asthma, uncomplicated (principal)
CPT/HCPCS: 99212; G0463